=== PATIENT | male | born 2000 | race Caucasian/White ===

== ENCOUNTER 2024-04-24 01:56 | Emergency (ER) | payer OTHER ==
[~2024-04-24] VITALS: Ht 175.3 cm; Wt 98.4 kg
[2024-04-24 02:16] VITALS: BP_SYST 150; PULSE 64; RESP 19; TEMP 98; O2SAT 98
[2024-04-24 02:33] VITALS: BP_SYST 150; PULSE 64; RESP 19; TEMP 98; O2SAT 98
== END 2024-04-24 02:33 | disposition home or self-care (01) ==
LOC: SED 01:56
DX: S39.012A Strain of muscle, fascia and tendon of lower back, initial encounter (principal); T21.12XA Burn of first degree of abdominal wall, initial encounter; V98.8XXA Other specified transport accidents, initial encounter; Y93.89 Activity, other specified; Y92.89 Other specified places as the place of occurrence of the external cause; Y99.8 Other external cause status
CPT/HCPCS: 99282